=== PATIENT | male | born 1995 | race Asian ===

== ENCOUNTER 2023-01-12 12:26 | Emergency (ER) | payer OTHER ==
[~2023-01-12] VITALS: Ht 175.3 cm; Wt 111.6 kg
[2023-01-12 12:36] VITALS: BP 151/85; TEMP 98.4
== END 2023-01-12 13:50 | disposition home or self-care (01) ==
LOC: ED 12:26
DX: R51.9 Headache, unspecified (principal); A08.39 Other viral enteritis; R11.2 Nausea with vomiting, unspecified; R19.7 Diarrhea, unspecified
CPT/HCPCS: 99282